=== PATIENT | male | born 1995 | race Two or more races ===

== ENCOUNTER 2018-11-07 16:32 | Emergency (ER) | payer SELFPAY ==
--- NOTE | 2018-11-07 16:49 | EDM.PDOC ---
ED HPI GENERAL MEDICAL PROBLEM - General Chief Complaint: General Stated Complaint: NOT FEELING WELL Time Seen by Provider: 11/07/18 16:44 Source of Information: Reports: Patient History Limitations: Reports: No Limitations - History of Present Illness INITIAL COMMENTS - FREE TEXT/NARRATIVE: HISTORY AND PHYSICAL: History of present illness: Patient is a 22-year-old male who presents to the emergency room today with complaints of generally feeling unwell, shortness of breath and cough. He states he was walking outside and the "wind took my breath away". He attributes this to a long-standing history of large amount of marijuana use in the past. He states he has not smoked in over 5 months. He is concerned that he "damaged my lungs" with his smoking. He also complains of a generalized headache and feeling fatigued. Patient denies any fever, chills, change in vision, syncope or near syncope. Denies any chest pain, back pain. Denies any abdominal pain, nausea, vomiting, diarrhea, constipation or dysuria. Has not noted any blood in urine or stool. Patient has been eating and drinking appropriately. Review of systems: As per history of present illness and below otherwise all systems reviewed and negative. Past medical history: As per history of present illness and as reviewed below otherwise noncontributory. Surgical history: As per history of present illness and as reviewed below otherwise noncontributory. Social history: See social history for further information Family history: As per history of present illness and as reviewed below otherwise noncontributory. Physical exam: General: Well-developed and well-nourished 22-year-old male. Alert and oriented. Nontoxic appearing and in no acute distress. HEENT: Atraumatic, normocephalic, pupils equal and reactive bilaterally, negative for conjunctival pallor or scleral icterus, mucous membranes moist, TMs normal bilaterally, mild maxillary sinus tenderness with palpation, throat clear, neck supple, nontender, trachea midline. No drooling or trismus noted. No meningeal signs. No hot potato voice noted. Lungs: Clear to auscultation, breath sounds equal bilaterally, chest nontender. Dry non productive cough noted. Heart: S1S2, regular rate and rhythm without overt murmur Abdomen: Soft, nondistended, nontender. Negative for masses. Skin: Intact, warm, dry. No lesions or rashes noted. Extremities: Atraumatic, moves all extremities per self without difficulty or deficits, negative for cords or calf pain. Neurovascular unremarkable. Neuro: Awake, alert, oriented. Cranial nerves II through XII unremarkable. Cerebellum unremarkable. Motor and sensory unremarkable throughout. Exam nonfocal. Notes: CT head shows no acute intracranial disease. Remnants of a SIGN ERECTOR shunt left scalp with catheter tubing extending through a left frontal tamir hole with tip line in the superior for left frontal region in the subdural space. Large amount of loculated fluid versus a large retention cyst left maxillary sinus. No acute findings on chest x-ray. Lab work is unremarkable. Vital signs remain stable. Patient does feel improved after the fluids and DuoNeb. Diagnostics were shared with the patient. Encouraged him to follow up with his primary care or the ENT specialist. Supportive care measures were reviewed and discussed. Voices understanding and is agreeable to plan of care. Denies any further questions or concerns at this time. Diagnostics: CBC, CMP, chest x-ray, head CT Therapeutics: IV fluid, DuoNeb Prescription: Zpak Albuterol Inhaler Impression: Sinusitis Bronchitis Plan: 1. Please take your antibiotics as directed. 2. Use the inhaler as needed for difficulty breathing. 2 puffs every 4 hours as needed. 3. Follow-up with your primary care provider or ENT specialist Definitive disposition and diagnosis as appropriate pending reevaluation and review of above. head Pain Score (Numeric/FACES): 7 - Related Data Allergies Allergy/AdvReac Type Severity Reaction Status Date / Time No Known Allergies Allergy Verified 11/07/18 16:54 Home Meds: Home Meds . [No Known Home Meds] 11/07/18 [History] ED ROS GENERAL - Review of Systems Review Of Systems: ROS reveals no pertinent complaints other than HPI. ED EXAM, GENERAL - Physical Exam Exam: See Below (See dictation) Course - Vital Signs Last Recorded V/S: Last Vital Signs Temp 98.5 F 11/07/18 16:50 Pulse 91 11/07/18 18:22 Resp 18 11/07/18 18:22 BP 118/73 11/07/18 18:22 Pulse Ox 98 11/07/18 18:22 - Orders/Labs/Meds Orders: Active Orders 24 hr Category Date Time Status RT Aerosol Therapy [RC] ASDIRECTED Care 11/07/18 16:56 Active Labs: Laboratory Tests 11/07/18 11/07/18 Range/Units 17:05 17:05 WBC 11.67 H (4.0-11.0) K/uL RBC 5.74 (4.50-5.90) M/uL Hgb 17.0 (13.0-17.0) g/dL Hct 50.4 H (38.0-50.0) % MCV 87.8 (80.0-98.0) fL MCH 29.6 (27.0-32.0) pg MCHC 33.7 (31.0-37.0) g/dL RDW Std Deviation 42.9 (28.0-62.0) fl RDW Coeff of Narciso 13 (11.0-15.0) % Plt Count 337 (150-400) K/uL MPV 10.50 (7.40-12.00) fL Neut % (Auto) 73.8 (48.0-80.0) % Lymph % (Auto) 18.1 (16.0-40.0) % [place] % (Auto) 7.8 (0.0-15.0) % Eos % (Auto) 0.1 (0.0-7.0) % Baso % (Auto) 0.2 (0.0-1.5) % Neut # (Auto) 8.6 H (1.4-5.7) K/uL Lymph # (Auto) 2.1 (0.6-2.4) K/uL [place] # (Auto) 0.9 H (0.0-0.8) K/uL Eos # (Auto) 0.0 (0.0-0.7) K/uL Baso # (Auto) 0.0 (0.0-0.1) K/uL Nucleated RBC % 0.0 /100WBC Nucleated RBCs # 0 K/uL Sodium 145 (136-148) mmol/L Potassium 4.0 (3.5-5.1) mmol/L Chloride 106 (98-107) mmol/L Carbon Dioxide 25.2 (21.0-32.0) mmol/L BUN 11 (7.0-18.0) mg/dL Creatinine 0.9 (0.8-1.3) mg/dL Est Cr Clr Drug Dosing 111.99 mL/min Estimated GFR (MDRD) > 60.0 ml/min Glucose 102 (74-106) mg/dL Calcium 9.4 (8.5-10.1) mg/dL Total Bilirubin 0.5 (0.2-1.0) mg/dL AST 22 (15-37) IU/L ALT 37 (14-63) IU/L Alkaline Phosphatase 95 (46-116) U/L Total Protein 8.7 H (6.4-8.2) g/dL Albumin 4.7 (3.4-5.0) g/dL Globulin 4.0 (2.6-4.0) g/dL Albumin/Globulin Ratio 1.2 (0.9-1.6) Meds: Medications Discontinued Medications Generic Name Dose Route Start Last Admin Trade Name Richyq PRN Reason Stop Dose Admin Albuterol/Ipratropium 3 ml 11/07/18 16:56 11/07/18 17:06 Duoneb 3.0-0.5 Mg/3 Ml NEB 11/07/18 16:57 3 ml ONETIME ONE Administration Sodium Chloride 1,000 mls @ 999 mls/hr 11/07/18 16:56 11/07/18 17:09 Normal Saline IV 11/07/18 17:56 999 mls/hr STAT ONE Administration Departure - Departure Time of Disposition: 18:47 Disposition: Home, Self-Care 01 Clinical Impression: Bronchitis Sinusitis Qualifiers: Sinusitis location: maxillary Chronicity: acute Recurrence: not specified as recurrent Qualified Code(s): J01.00 - Acute maxillary sinusitis, unspecified - Discharge Information Instructions: Sinusitis, Adult, [id number], Upper Respiratory Infection, Adult, [id number] Referrals: PCP,None [Primary Care Provider] - Forms: ED Department Discharge Additional Instructions: The following information is given to patients seen in the emergency department who are being discharged to home. This information is to outline your options for follow-up care. We provide all patients seen in our emergency department with a follow-up referral. The need for follow-up, as well as the timing and circumstances, are variable depending upon the specifics of your emergency department visit. If you don't have a primary care physician on staff, we will provide you with a referral. We always advise you to contact your personal physician following an emergency department visit to inform them of the circumstance of the visit and for follow-up with them and/or the need for any referrals to a consulting specialist. The emergency department will also refer you to a specialist when appropriate. This referral assures that you have the opportunity for follow-up care with a specialist. All of these measure are taken in an effort to provide you with optimal care, which includes your follow-up. Under all circumstances we always encourage you to contact your private physician who remains a resource for coordinating your care. When calling for follow-up care, please make the office aware that this follow-up is from your recent emergency room visit. If for any reason you are refused follow-up, please contact the [facility] Emergency Department at and asked to speak to the emergency department charge nurse. [facility] [address] [place] [id number] [place] [address] 1. Please take your antibiotics as directed. 2. Use the inhaler as needed for difficulty breathing. 2 puffs every 4 hours as needed. 3. Follow-up with your primary care provider or ENT specialist - My Orders Last 24 Hours: My Active Orders 11/07/18 16:56 RT Aerosol Therapy [RC] ASDIRECTED - Assessment/Plan Last 24 Hours: My Active Orders 11/07/18 16:56 RT Aerosol Therapy [RC] ASDIRECTED
[2018-11-07] MEDS ORDERED: Sodium Chloride 0.9% 1,000 ML IV ONE (16:56)
[2018-11-07] MEDS ORDERED: Albuterol/Ipratropium 3.0-0.5 MG/3 ML Neb Soln NEB ONE (16:56)
[2018-11-07 17:54] LABS: CHLORIDE,CL 106 mmol/L (98-107); SODIUM,NA 145 mmol/L (136-148)
--- NOTE | 2018-11-07 18:15 | CR ---
INDICATION: Dyspnea. TECHNIQUE: PA and lateral chest x-ray. FINDINGS: Catheter tubing along the left anterior abdominal and mid and lower anterior chest wall. Additional catheter tubing projected in the anterior abdomen only partially visualized. These can be correlated clinically. Heart is normal in size. Lungs are clear without infiltrate or consolidation. Pleural thickening in the lung apices. Small nodular density are area of sclerosis projected over the right 3rd posterior rib benign. Chest otherwise negative without acute disease. Dictated by Presley Beard MD @ Nov 07 2018 6:06PM Signed by Dr. Presley Beard @ Nov 07 2018 6:12PM
--- NOTE | 2018-11-07 18:19 | CT ---
INDICATION: Headache. History of shunt. TECHNIQUE: CT head without IV contrast. FINDINGS: Remnants of a LIBRARIAN HELPER shunt in the left lateral parietal frontal scalp with portions of the LIBRARIAN HELPER shunt extending intracranially throughout left frontal tamir hole to lie adjacent to the anterior superior frontal lobe region in the subdural space with tip on image 45. Large retention cyst or loculated fluid in the left maxillary sinus. Small amount of fluid in left ethmoidal sinuses. No acute intracranial hemorrhage, edema, or mass effect. The lateral and 3rd ventricles are not dilated. Minimal left greater than right cerebral atrophy greater than expected for a patient this age. Remainder negative. IMPRESSION: 1. No acute intracranial disease. 2. Remnants of a LIBRARIAN HELPER shunt left scalp with catheter tubing extending through a left frontal tamir hole with tip line in the superior for left frontal region in the subdural space. 3. Large amount of loculated fluid versus a large retention cyst left maxillary sinus. 4. Mild atrophy greater than expected for patient of this age. Please note that all CT scans at this facility use dose modulation, iterative reconstruction, and/or weight-based dosing when appropriate to reduce radiation dose to as low as reasonably achievable. Dictated by Presley Beard MD @ Nov 07 2018 6:16PM Signed by Dr. Presley Beard @ Nov 07 2018 6:18PM
== END 2018-11-07 19:05 | disposition home or self-care (01) ==
LOC: MW.ED 16:32
DX: J40 Bronchitis, not specified as acute or chronic (principal); J01.00 Acute maxillary sinusitis, unspecified
CPT/HCPCS: 70450; 71046; 80053; 85025; 94640; 96360; 96361; 99284; J7040; J7620-GY